=== PATIENT | female | born 1990 | race Caucasian/White ===

== ENCOUNTER → 2018-12-16 | Outpatient (REF) | payer OTHER | LOC: M LAB REF 13:04 | PROVIDERS: ATTEND Advanced Practice Midwife | DX: Z34.03 Encounter for supervision of normal first pregnancy, third trimester (principal); Z36.89 Encounter for other specified antenatal screening; Z3A.00 Weeks of gestation of pregnancy not specified ==

== ENCOUNTER 2019-01-12 05:33 | Inpatient (IN) | payer OTHER ==
[2019-01-12] VITALS (9 sets, daily range): BP systolic 97–141; BP diastolic 55–84
[~2019-01-12] VITALS: Ht 157.5 cm; Wt 75.6 kg
[~2019-01-12 05:33] MED LIST: BICITRA 30ML SOLN UDC PO ONE; EPIP0.3I2 IJ; LACTATED RINGER'S 1000 ML IV STA; LR 1,000 ML IV SCH; PRENTAB55 PO
[2019-01-12 06:08] LABS: HEMATOCRIT 39.7 % (36.0-47.0); HEMOGLOBIN 12.6 g/dl (12.0-15.5); MEAN CORPUSCULAR HEMOGLOBIN 27.6 pg (27.0-33.0); MEAN CORPUSCULAR HGB CONC 31.7 g/dl (32.0-36.5); MEAN CORPUSCULAR VOLUME 86.9 fl (80.0-96.0); PLATELET COUNT, AUTOMATED 258 10^3/uL (150-450); RED BLOOD COUNT 4.57 10^6/uL (4.00-5.40); WHITE BLOOD COUNT 12.6 10^3/uL (4.0-10.0)
[2019-01-12] MEDS ORDERED: ONDANSETRON 4MG/2ML VIAL (J2405) As Ordered ONE (07:02)
[2019-01-12] MEDS ORDERED: OXYTOCIN INJ 10 UNITS/ML VIAL (J2590) As Ordered ONE (07:04)
[2019-01-12] MEDS ORDERED: ACETAMINOPHEN 1000MG 100ML IV BTL (OFIRMEV) (J0131 PER 10MG) As Ordered ONE (07:04)
[2019-01-12] MEDS ORDERED: KETOROLAC 60 MG/2 ML VIAL (J1885) As Ordered ONE (07:04)
[2019-01-12] MEDS ORDERED: MORPHINE PRES-FREE INJ 10 MG/10 ML VIAL (J2274) As Ordered ONE (07:05)
[2019-01-12] MEDS ORDERED: fentaNYL 100 MCG/2 ML INJECTION (J3010) As Ordered ONE (07:05)
[2019-01-12] MEDS ORDERED: BICITRA 30ML SOLN UDC PO ONE (09:00)
[2019-01-12] MEDS ORDERED: NALBUPHINE HCL 10 MG/ML AMP (J2300) IV PRN (09:40)
[2019-01-12] MEDS ORDERED: diphenhydrAMINE INJ 50MG/ML VIAL (J1200) IV PRN (09:40)
[2019-01-12] MEDS ORDERED: METOCLOPRAMIDE INJ 10MG/2ML VIAL (J2765) IV PRN (09:40)
[2019-01-12] MEDS ORDERED: NALOXONE INJ 0.4 MG/1 ML VIAL (J2310) IV PRN ×2 (09:40)
[2019-01-12] MEDS ORDERED: ONDANSETRON 4MG/2ML VIAL (J2405) IV PRN ×3 (09:40→11:00)
[2019-01-12] MEDS ORDERED: PHENYLephrine HCL 500 MCG/5 ML (100MCG/ML) SYRINGE (J2370) As Ordered ONE (10:28)
[2019-01-12] MEDS ORDERED: OXYC1TAB23 PO (10:46)
[2019-01-12] MEDS ORDERED: IBUP1TAB7 PO (10:47)
[2019-01-12] MEDS ORDERED: COLA100C5 PO (10:48)
[2019-01-12] MEDS ORDERED: OXYTOCIN DRIP 30 UNITS in APPROPRIATE DILUENT 1 EA IV SCH (10:48)
[2019-01-12] MEDS ORDERED: PROMETHAZINE 25 MG TAB PO PRN (11:00)
[2019-01-12] MEDS ORDERED: PERCOCET 5MG/325MG TAB PO PRN (11:00)
[2019-01-12] MEDS ORDERED: oxyCODONE 5MG TAB PO PRN (11:00)
[2019-01-12] MEDS ORDERED: MEASLES,MUMPS,RUBELLA VACCINE INJ (MMR-II) (90707) SC SCH (11:00)
[2019-01-12] MEDS ORDERED: fentaNYL 100 MCG/2 ML INJECTION (J3010) IV PRN (11:00)
[2019-01-12] MEDS ORDERED: LR 1,000 ML IV SCH (11:00)
[2019-01-12] MEDS ORDERED: RHOGAM 300 MCG (1500 IU) INJ (J2790) IM SCH (11:00)
--- NOTE | 2019-01-12 11:32 | NUR ---
Operative Note Date of procedure: 01/12/2019 Procedure:, Primary low-transverse section Anesthesia: Spinal with Duramorph Preoperative diagnosis: . 39+ weeks gestation, breech presentation Postoperative diagnosis: Same as preoperative Indication: Breech presentation at 39+ weeks Primary surgeon: Jean Pierre Hanley D.O., [employer] Manager: Carlos A Ramirez CNM (essential for surgical site exposure and assistance with delivery) Estimated blood loss:500 ml IV fluids administered: 2000 ml crystalloid Drains: Barros catheter. Urine output:275 ml Pepin data: Apgars 8 and 9. Birthweight 3,330g, 7lbs 5oz. Male. Preoperative/prophylactic antibiotics: Ancef 2 g IV (given within 30 minutes prior to surgical start time). Intraoperative findings: Jt breech presentation. Normal uterus and bilateral adnexa / ovaries. Specimen(s): none Procedure: The patient was counseled and consented on the risks, benefits, indications and alternatives of the procedure. Informed consent was obtained and placed in the c bahena. She was taken to the operating room with an IV running. She was placed on the operating table. Spinal anesthesia was administered without any difficulty and found to be adequate. She was placed in the dorsal supine position with a leftward tilt. Sequential compression devices were placed on the lower extremities. A Barros catheter was placed under sterile conditions. She was sterilely prepped and draped. A surgical timeout was performed per protocol. Spinal anesthesia was again found to be adequate. Using the 10 blade a Pfannenstiel incision was performed. The 10 blade was used to dissect down to the level of the rectus sheath fascia. The rectus sheath fas santana was incised at the midline, and the fascial incision was extended with Thorpe scissors. Helio clamps were used to grasp the superior and inferior aspect of the fascial incision and the rectus muscle bellies were dissected off sharply and bluntly. The midline was identified and the rectus muscle bellies were manually . The peritoneum was identified and clamped with hemostats and elevated. The peritoneum was then incised with Metzenbaum scissors. Entry into the intraperitoneal cavity was achieved. The peritoneal opening was extended with manual stretch . There was good visualization of both the bladder and the lower uterine segment. The bladder retractor was placed. The vesicouterine peritoneum was dissected with Metzenbaum scissors and blunt dissection. Bladder retractor was repositioned. A low transverse uterine incision was made with a new 10 blade. The hysterotomy was extended with manual stretch. The amniotic sac was protruding and then artificially ruptured. Clear amniotic fluid was noted. Breech maneuvers were performed (Pinard's, Loveset's, MSV). The baby delivered through the hysterotomy with ease. The cord was doubly clamped and cut and the baby was handed off to awaiting care. See data above. Cord blood was obtained. The placenta was manually removed and noted to be fully intact. The uterus was kept in situ The intrauterine cavity was cleared of all clot and debris with a laparotomy sponge. The hysterotomy was closed with 0 Vicryl in running, locked fashion. A second imbricating closure was performed over the initial layer closure using 0 Vicryl The hysterotomy was noted to be hemostatic. The posterior cul-de-sac was irrigated and cleared of all clot and debris. The paracolic gutters were cleared of all clot and debris with damp laparotomy spong es. The hysterotomy is reinspected and noted to be hemostatic. Sponge, needle and instrument counts were correct. The peritoneum was closed with 3-0 Vicryl in running fashion. The rectus muscle bellies were reapproximated with 3-0 Vicryl with a series of interrupted sutures. The rectus muscle bellies were noted to be hemostatic. The fascia was closed with 0 Vicryl in running fashion. Sponge, needle and instrument counts were again correct. The subcutaneous layer was irrigated. Small subcutaneous bleeders were cauterized with Bovie. The subcutaneous layer was reapproximated with 3-0 Vicryl in running fashion. The skin was closed with 3-0 Monocryl in subcuticular fashion. A bandage was placed over the closed incision. The final sponge, instrument and needle count was correct. She tolerated the entire procedure very well. She was transferred to the PACU in good and stable condition. Dr. Jean Pierre Hanley D.O., [email or web address]
[2019-01-12] MEDS: KETOROLAC 30 MG/ML VIAL (J1885) IV SCH ×2 (17:23→22:12)
[2019-01-12] MEDS: LR 1,000 ML IV SCH ×2 (17:33→22:13)
[2019-01-12] MEDS: DOCUSATE SODIUM 100 MG CAP PO SCH (22:12)
[2019-01-13 01:50] VITALS: BP 101/51
[2019-01-13] MEDS: KETOROLAC 30 MG/ML VIAL (J1885) IV SCH (05:08)
[2019-01-13 06:10] VITALS: BP 96/53
[2019-01-13 07:20] LABS: HEMATOCRIT 31.1 % (36.0-47.0); HEMOGLOBIN 9.7 g/dl (12.0-15.5); MEAN CORPUSCULAR HEMOGLOBIN 27.1 pg (27.0-33.0); MEAN CORPUSCULAR HGB CONC 31.2 g/dl (32.0-36.5); MEAN CORPUSCULAR VOLUME 86.9 fl (80.0-96.0); PLATELET COUNT, AUTOMATED 231 10^3/uL (150-450); RED BLOOD COUNT 3.58 10^6/uL (4.00-5.40); WHITE BLOOD COUNT 13.5 10^3/uL (4.0-10.0)
--- NOTE | 2019-01-13 08:09 | NUR ---
Postoperative Day 1 Status post primary low transverse section, uncomplicated. (indication: breech presentation) Subjective Pain is well controlled. Lochia is decreasing and minimal. Voiding spontaneously. Tolerating a regular diet. Ambulating without any assistance. Denies any subjective fever, chills, nausea, vomiting, headache, visual changes, shortness of breath, chest pain. Objective Vitals: Normotensive, normal heart rate, afebrile, adequate urine output. Heart: regular, rate, and rhythm. no murmurs/gallops/rubs Lungs: clear to auscultation bilaterally, no wheezes/crackles/rales/ronchi Abd: soft, nontender, nondistended, uterine fundus is 2cm below umbilicus and firm Incision: clean, dry, intact Ext: no significant edema, nontender, negative Mat's bilaterally. Preoperative H/H: 12.6/39.7 Postoperative H/H: 9.7/31.1 Assessment/Plan: Postoperative day 1 status post primary low transverse section. Recovering well. Hemodynamically stable, afebrile, good pain control. -Routine care -Discharge to home tomorrow. -Routine infectious, fever, pain, and bleeding precautions reviewed -Incision/wound care precautions reviewed. Kaylie Mcnamara.O., F.A.C.O.G.
[2019-01-13] MEDS: DOCUSATE SODIUM 100 MG CAP PO SCH ×2 (09:35→20:40)
[2019-01-13] MEDS: PRENATAL VITAMINS CHEWABLE TABLET PO SCH (09:35)
[2019-01-13 10:09] VITALS: BP 110/65
[2019-01-13] MEDS: IBUPROFEN 800 MG TAB PO SCH ×2 (13:14→20:40)
[2019-01-13 14:00] VITALS: BP 109/58
[2019-01-13 18:00] VITALS: BP 106/56
[2019-01-13] MEDS: PERCOCET 5MG/325MG TAB PO PRN (18:38)
[2019-01-14 02:29] VITALS: BP 102/56
[2019-01-14] MEDS: IBUPROFEN 800 MG TAB PO SCH (05:15)
[2019-01-14] MEDS: PERCOCET 5MG/325MG TAB PO PRN (05:16)
[2019-01-14 06:18] VITALS: BP 103/69
--- NOTE | 2019-01-14 06:49 | DSES ---
DATE OF ADMISSION: 01/12/2019 DATE OF DISCHARGE: 01/14/2019 DISCHARGE DIAGNOSIS: Primary section postop day #2 stable condition. SURGEON: Dr. Jean Pierre Hanley, assistance Patricia Ramirez certified nurse intelligence operations. HISTORY: Denisa is a 28-year-old 1, para 1-0-0-1 now, she was admitted for primary section due to breech presentation. Her surgery was uncomplicated. She did deliver a live male infant 3330 grams, 7 pounds 5 ounces, 8 and 9. Estimated blood loss 500 mL. Her postoperative course has been uncomplicated. She has been voiding without difficulty, positive flatus. Pain has been well controlled with p.o. pain medications. She has been out of bed for care, berenice-care and self care. She is tolerating p.o. fluids and a regular diet. She does desire discharge to home today. OBJECTIVE: Temperature 98.5, pulse 81, respirations 18, BP is 103/69. Her abdomen is fundus firm at one fingerbreadth below umbilicus. Her incision is the dressing applied. There is no drainage noted. Her perineum is intact. She rubra scant. PLAN: Discharge the patient home today. She is to follow up in 2 weeks for an incision check and 8 weeks for visit. I did review discharge instructions that include breast care incision care, berenice-care, pelvic rest, activity and lifting restrictions and other danger signs to report to her provider and access to care. Prescriptions for pain medications Percocet 5/325 by mouth have been E- prescribed by Dr. Jean Pierre Hanley. The patient has had all of her questions answered and does agree with the plans to discharge home today. JAYASHREE
[2019-01-14] MEDS: DOCUSATE SODIUM 100 MG CAP PO SCH (09:55)
[2019-01-14] MEDS: PRENATAL VITAMINS CHEWABLE TABLET PO SCH (09:55)
== END 2019-01-14 11:37 | disposition home or self-care (01) | DRG 788 ==
LOC: M LDI 05:33 → M OBS 12:29
PROVIDERS: ADMIT Obstetrics & Gynecology; ATTEND Obstetrics & Gynecology
PROC: 10D00Z1 Extraction of Products of Conception, Low, Open Approach (ICD-10-PCS; principal; 2019-01-12 07:30)
DX: O32.1XX0 Maternal care for breech presentation, not applicable or unspecified (principal); Z37.0 Single live birth; Z3A.39 39 weeks gestation of pregnancy

== ENCOUNTER → 2019-05-17 | Outpatient (REF) | payer OTHER ==
[~2019-05-17] MED LIST changes: -BICITRA 30ML SOLN UDC PO ONE; +COLA100C5 PO; +IBUP1TAB7 PO; -LACTATED RINGER'S 1000 ML IV STA; -LR 1,000 ML IV SCH; +OXYC1TAB23 PO
== END ==
LOC: M LAB REF 19:58
PROVIDERS: ATTEND Obstetrics & Gynecology
DX: Z12.4 Encounter for screening for malignant neoplasm of cervix (principal)

== ENCOUNTER → 2021-10-26 | Outpatient (CLI) | payer OTHER ==
[2021-10-26 13:16] LABS: HEMATOCRIT 45.4 % (36.0-47.0); HEMOGLOBIN 14.8 g/dl (12.0-15.5); MEAN CORPUSCULAR HEMOGLOBIN 29.9 pg (27.0-33.0); MEAN CORPUSCULAR HGB CONC 32.6 g/dl (32.0-36.5); MEAN CORPUSCULAR VOLUME 91.7 fl (80.0-96.0); PLATELET COUNT, AUTOMATED 225 10^3/uL (150-450); RED BLOOD COUNT 4.95 10^6/uL (4.00-5.40); WHITE BLOOD COUNT 11.7 10^3/uL (4.0-10.0)
[2021-10-26 14:03] LABS: FREE T4 0.8 NG/DL (0.76-1.46); THYROID STIMULATING HORMONE 2.11 uIU/ML (0.358-3.740)
[2021-10-29 14:11] LABS: CARDIOLIPIN IGA ANTIBODY <9 APL U/mL (0-11); CARDIOLIPIN IGG ANTIBODY <9 GPL U/mL (0-14); CARDIOLIPIN IGM ANTIBODY 10 MPL U/mL (0-12)
== END ==
LOC: M PLALAB 10:50
PROVIDERS: ATTEND Advanced Practice Midwife
DX: Z01.419 Encounter for gynecological examination (general) (routine) without abnormal findings (principal); N96 Recurrent pregnancy loss
CPT/HCPCS: 36415; 82652; 84439; 84443; 85027; 86147; G0123

== ENCOUNTER → 2022-11-04 | Outpatient (CLI) | payer OTHER ==
[2022-11-04 14:09] LABS: HEMATOCRIT 38.9 % (36.0-47.0); HEMOGLOBIN 12.8 g/dl (12.0-15.5); MEAN CORPUSCULAR HEMOGLOBIN 30.6 pg (27.0-33.0); MEAN CORPUSCULAR HGB CONC 32.9 g/dl (32.0-36.5); MEAN CORPUSCULAR VOLUME 93.1 fl (80.0-96.0); PLATELET COUNT, AUTOMATED 216 10^3/uL (150-450); RED BLOOD COUNT 4.18 10^6/uL (4.00-5.40)
[2022-11-04 15:27] LABS: GC DNA AMPLIFICATION NEGATIVE (NEGATIVE)
== END ==
LOC: M PLALAB 09:23
PROVIDERS: ATTEND Obstetrics & Gynecology
DX: Z36.9 Encounter for antenatal screening, unspecified (principal)

== ENCOUNTER → 2023-01-07 | Outpatient (REF) | payer OTHER | LOC: M SFHCWAGY 12:59 | PROVIDERS: ATTEND Obstetrics & Gynecology | DX: O34.211 Maternal care for low transverse scar from previous cesarean delivery (principal) ==

== ENCOUNTER → 2023-02-04 | Outpatient (CLI) | payer OTHER ==
[~2023-02-04] MED LIST changes: +CALC500T68 PO; +IBUP80TA PO; +MULTTAB20 PO; +PERCOCET PO
[2023-02-04 15:41] LABS: HEMATOCRIT 44.6 % (36.0-47.0); HEMOGLOBIN 14.4 g/dl (12.0-15.5); MEAN CORPUSCULAR HEMOGLOBIN 29.3 pg (27.0-33.0); MEAN CORPUSCULAR HGB CONC 32.3 g/dl (32.0-36.5); MEAN CORPUSCULAR VOLUME 90.8 fl (80.0-96.0); PLATELET COUNT, AUTOMATED 367 10^3/uL (150-450); RED BLOOD COUNT 4.91 10^6/uL (4.00-5.40); WHITE BLOOD COUNT 12.4 10^3/uL (4.0-10.0)
[2023-02-04 15:43] LABS: ALKALINE PHOSPHATASE 124 U/L (46-116); ALT/SGPT 37 U/L (7.0-40); AST/SGOT 28 U/L (<34); BILIRUBIN,TOTAL 0.4 MG/DL (0.3-1.2); BLOOD UREA NITROGEN 13 MG/DL (9-23); CALCIUM LEVEL 9.6 MG/DL (8.5-10.1); CARBON DIOXIDE LEVEL 26 MMOL/L (20-31); CHLORIDE LEVEL 107 MMOL/L (98-107); CREATININE FOR GFR 0.72 MG/DL (0.55-1.30); GLOMERULAR FILTRATION RATE > 60.0 (>60); GLUCOSE, FASTING 77 MG/DL (60-100); POTASSIUM SERUM 4.3 MMOL/L (3.5-5.1); SODIUM LEVEL 139 MMOL/L (136-145); TOTAL PROTEIN 7.3 G/DL (5.7-8.2)
== END ==
LOC: M PLALAB 13:24
PROVIDERS: ATTEND Obstetrics & Gynecology
DX: L29.9 Pruritus, unspecified (principal)